=== PATIENT | female | born 1970 | race Caucasian/White ===

== ENCOUNTER 2019-03-22 11:56 | Inpatient (IN) | payer BC ==
[2019-03-22 12:20] LABS: Absolute Lymphocytes (CBC) 2.5 K/uL (0.7-4.9); Eosinophils % 1.5 % (0-4.4); Hematocrit 41.1 % (36.0-45.0); Lymphocytes % 40.9 % (15.3-44.8); Monocytes % 4.4 % (3.3-12.3); RBC Red Blood Cell Count 4.07 M/uL (3.86-4.86)
[2019-03-22 12:27] LABS: Protime INR 0.98
[2019-03-22] MEDS ORDERED: NA CHLORIDE 0.9% 500 ML ONE (12:30)
[2019-03-22] MEDS ORDERED: THIAMINE 200 MG/2 ML INJ ONE (12:30)
[2019-03-22 12:42] LABS: ALT/SGPT 60 U/L (12-78); AST/SGOT 122 U/L (15-37); Albumin 3.2 g/dL (3.4-5.0); Alkaline Phosphatase 198 U/L (45-117); BUN Blood Urea Nitrogen 4 mg/dL (7-18); Bicarbonate 23 mmol/L (21-32); Bilirubin Direct 0.2 mg/dL (0-0.2); Bilirubin Total 0.4 mg/dL (0.2-1.0); Glucose Level 103 mg/dL (74-106); Magnesium 1.9 mg/dL (1.8-2.4); NT PRO-BNP 153 pg/mL (<125); Potassium 3.4 mmol/L (3.5-5.1); Protein, Total 7.6 g/dL (6.4-8.2); Sodium Level 144 mmol/L (136-145); Troponin (Emerg Dept Use Only) < 0.02 ng/mL (0.0-0.045)
--- NOTE | 2019-03-22 12:46 | RAD REPORT ---
EXAM DESCRIPTION: CT - Head Brain Wo Cont - 03/22/2019 12:38 pm CLINICAL HISTORY: Confused;Mental status change Drowsiness, headache COMPARISON: No comparisons TECHNIQUE: All CT scans are performed using dose optimization technique as appropriate and may inclu de automated exposure control or mA/KV adjustment according to patient size. FINDINGS: No intracranial hemorrhage, hydrocephalus or extra-axial fluid collection.Generalized brai n atrophy.No areas of brain edema or evidence of midline shift. The paranasal sinuses and mastoids are clear. The calvarium is intact. IMPRESSION: No acute intracranial abnormality.
[2019-03-22] MEDS ORDERED: NA CHLORIDE 0.9% 1,000 ML with FOLIC ACID 1 MG, THIAMINE HCL 100 MG, MULTIVITAMINS INJ ... IV SCH ×4 (13:00)
--- NOTE | 2019-03-22 13:04 | ER ---
Nurse's Notes [facility] Name: Megha Yang Age: 49 yrs Sex: Female : 1970 Arrival Date: 03/22/2019 Time: 12:03 Bed 4 Private MD: Diagnosis: Alcohol abuse;Alcohol abuse with intoxication;Abuse of non-psychoactive substances-diazapam and seroquel;Altered mental status, unspecified;Hypokalemia;Major depressive disorder, recurrent;Suicide attempt;Suicidal ideations Presentation: 03/22 12:07 Presenting complaint: EMS states: called EMS as patient was found to be ss minimally responsive in bed today. Last seen normal at 0630 this AM before left for work. Patient reportedly mentioned to family that the world would be better off without her in it. Pt is drowsy, but will open eyes and attempt to speak, but is unable to verbally communicate. Patient had a Seroquel 50 mg prescription that was filled 5 days ago #30, which was found empty. Pt also has a bottle of diazepam #30 which contains 10 tablets, and was prescribed in February of this year. Transition of care: patient was not received from another setting of care. Onset of symptoms was March 22, 2019. Risk Assessment: Do you want to hurt yourself or someone else? Unable to obtain. Initial Sepsis Screen: Does the patient meet any 2 criteria? HR > 90 bpm. Does the patient have a suspected source of infection? No. Patient's initial sepsis screen is negative. Care prior to arrival: Medication(s) given: Normal saline infusion, 250 mL NS administered to R AC IV initiated. 20 GA, in the right antecubital area, Glucose check: 107. 12:07 Method Of Arrival: EMS: [facility] 12:07 Acuity: JANETTE 1 ss HOSPICE CONSULTANT: 13:03 LMP N/A - Hysterectomy ss Historical: - Allergies: 12:15 No Known Allergies; aa5 - Home Meds: 12:15 Seroquel 50 mg Oral tab take 1/2 tab at bedtime [Active]; diazepam 10 mg oral tab daily aa5 [Active]; gabapentin 300 mg oral cap 3 times per day [Active]; - PMHx: 12:15 Depression; ss - PSHx: 12:15 Hysterectomy; cervical cancer; Appendectomy; Cholecystectomy; ss - Immunization history:: Adult Immunizations unknown. - Social history:: Smoking status: unknown. - Ebola Screening: : Unable to complete screening because. - Family history:: not pertinent. Screenin:05 Abuse screen: Unable to complete. Nutritional screening: unable to complete. aa5 Tuberculosis screening: unable to complete. Fall Risk IV access (20 points). Mental Status- Overestimates/Forgets Limitations (15 pts.). Total Bedolla Fall Scale indicates Low Risk Score (25-44 pts). Fall prevention measures have been instituted. Side Rails Up X 2 Placed close to Nursing Station. Assessment: 12:05 Pain: Unable to use pain scale. Patient is unresponsive. Neuro: Level of Consciousness aa5 is drowsy, pt opens eyes to verbal stimuli, incomprehensible speech noted, pt is able to dixonac operator, equal wool fleece sorter bilaterally. Pupils are equal, round, 2mm in size and reactive to light. . Cardiovascular: Heart tones S1 S2 present Rhythm is regular. Respiratory: Airway is patent Respiratory effort is even, unlabored, Respiratory pattern is regular, symmetrical. GI: Abdomen is round Bowel sounds present X 4 quads. Abd is soft X 4 quads. : No signs and/or symptoms were reported regarding the genitourinary system. EENT: No signs and/or symptoms were reported regarding the EENT system. Derm: Skin is pink, warm \\T\\ dry. Bruising that is dark purple, on chest. Musculoskeletal: Range of motion: intact in all extremities. 12:20 Reassessment: Pt's at bedside, pt's states "she drinks whiskey every aa5 day". 12:29 Reassessment: Spoke to poison control, case # [id number]. Recommendations are as follow: aa5 basic/toxic labs, EKG, cardiac monitoring, IV fluids, seizure precautions, monitor for cholinergic effects (dry mouth, tachycardia, agitation, and urinary retention), monitor for prolonged QT, monitor for CHEESE SPECIALIST depression, administer benzodiazepines for agitation as needed. Dr. Haley notified of recommendations. . 12:55 Reassessment: To bedside to insert Briggs. Speaking to patient about need for Briggs aa5 placement, pt awakened and stated "I refused" with clear speech noted, pt is alert and oriented x person, place, and time. Pt now drowsy and slurred incomprehensible speech noted, pt does not answer questions when asked which medications she ingested, pt also does not answer question about being suicidal/homicidal. MD was notified of findings and notified of pt's refusal for Briggs placement. Pt assisted with bedpan and urine specimen collection, pt voided 50 cc of clear yellow urine. . 13:20 Reassessment: Pt assisted with bedpan. aa5 13:30 Reassessment: Pt resting in bed with eyes closed, respirations even and unlabored, skin aa5 is pink/warm/dry. Pt awakens to verbal stimuli, incomprehensible speech noted at this time, pt appears drowsy. Pt's remains at bedside. . 14:00 Reassessment: Pt resting in bed with eyes closed, respirations even and unlabored, skin aa5 is pink/warm/dry. Pt awakens to verbal stimuli, speech is slurred. Pt appears drowsy. Pt not answering questions regarding overdose. . 14:10 Reassessment: awaiting admission orders to be placed prior to receiving room ss assignment. Dr. Syed at bedside to discuss plan of care and perform assessment. 15:00 Reassessment: Pt resting in bed with eyes closed, pt easy to arouse to verbal stimuli. aa5 Pt is A\\T\\O x 3, equal unlabored, respirations, skin is pink/warm/dry. Awaiting room assignment. . 15:00 Neuro: Lean Facilitator are equal bilaterally Moves all extremities. Speech is normal, Facial aa5 symmetry appears normal, Pupils are PERRLA. Vital Signs: 12:05 BP 121 / 85; Pulse 120; Resp 12; Pulse Ox 100% on 2 lpm NC; aa5 12:05 Temp 97.8(TE); aa5 12:25 BP 107 / 72; Pulse 115; Resp 18 S; Pulse Ox 100% on 2 lpm NC; aa5 13:00 BP 103 / 71; Pulse 93; Resp 16 S; Pulse Ox 99% on 2 lpm NC; aa5 13:43 BP 104 / 73; Pulse 88; Resp 16; Pulse Ox 100% on 2 lpm NC; ms 14:20 BP 112 / 80; Pulse 92; Resp 18 S; Temp 97.6(TE); Pulse Ox 100% on 2 lpm NC; aa5 15:02 BP 91 / 67; Pulse 88; Resp 16; Pulse Ox 100% on 2 lpm NC; ms 15:20 BP 92 / 68; Pulse 88; Resp 16 S; Temp 98.0(TE); Pulse Ox 100% on 2 lpm NC; aa5 15:40 BP 90 / 69; Pulse 88; Resp 16 S; Pulse Ox 99% on 2 lpm NC; aa5 ED Course: 12:03 Patient arrived in ED. ss 12:03 Marino Haley MD is Attending Physician. yunior 12:05 Arm band placed on right wrist. aa 12:05 Patient has correct armband on for positive identification. Placed in gown. Bed in low aa5 position. Side rails up X2. 12:07 Caty Melara, TARIK is Primary Nurse. aa5 12:14 Triage completed. 12:15 Safety checks: Items removed: yes. Door open/sign placed on door: yes. Family/friend ms present: yes. Family/friends encouraged to stay with patient. Sitter present: Yes. 12:30 Safety checks: Items removed: yes. Door open/sign placed on door: yes. Family/friend ms present: yes. Family/friends encouraged to stay with patient. Sitter present: Yes. 12:38 CT Head Brain wo Cont In Process Unspecified. EDMS 12:45 Safety checks: Items removed: yes. Door open/sign placed on door: yes. Family/friend ms present: yes. Family/friends encouraged to stay with patient. Sitter present: Yes. 12:58 Agustín Syed MD is Hospitalizing Provider. [facility] 12:59 Hospitalizing Provider role handed off by Agustín Syed MD [facility] 12:59 Ramiro Syed MD is Hospitalizing Provider. [facility] 13:00 Safety checks: Items removed: yes. Door open/sign placed on door: yes. Family/friend ms present: yes. Family/friends encouraged to stay with patient. Sitter present: Yes. 13:15 Safety checks: Items removed: yes. Door open/sign placed on door: yes. Family/friend ms present: yes. Family/friends encouraged to stay with patient. Sitter present: Yes. 13:29 Maintain EMS IV. Dressing intact. Good blood return noted. Site clean \\T\\ dry. ms 13:30 Safety checks: Items removed: yes. Door open/sign placed on door: yes. Family/friend ms present: yes. Family/friends encouraged to stay with patient. Sitter present: Yes. Assisted with bedpan. 13:45 Safety checks: Items removed: yes. Door open/sign placed on door: yes. Family/friend ms present: yes. Family/friends encouraged to stay with patient. Sitter present: Yes. 14:00 Safety checks: Items removed: yes. Door open/sign placed on door: yes. Family/friend ms present: yes. Family/friends encouraged to stay with patient. Sitter present: Yes. 14:09 Hospitalist at bedside with Pt. ms 14:15 Safety checks: Items removed: yes. Door open/sign placed on door: yes. Family/friend ms present: yes. Family/friends encouraged to stay with patient. Sitter present: Yes. 14:30 Safety checks: Items removed: yes. Door open/sign placed on door: yes. Family/friend ms present: yes. Family/friends encouraged to stay with patient. Sitter present: Yes. 14:32 X-ray completed. Portable x-ray completed in exam room. Patient tolerated procedure jb2 well. 14:45 Safety checks: Items removed: yes. Door open/sign placed on door: yes. Family/friend ms present: yes. Family/friends encouraged to stay with patient. Sitter present: Yes. 15:00 Safety checks: Items removed: yes. Door open/sign placed on door: yes. Family/friend ms present: yes. Family/friends encouraged to stay with patient. Sitter present: Yes. 15:15 Safety checks: Items removed: yes. Door open/sign placed on door: yes. Family/friend ms present: yes. Family/friends encouraged to stay with patient. Sitter present:. 15:30 Safety Checks: Personal items have been removed. The door is open or patient has been aa5 placed in a hallway bed/chair. A family member and/or friend is present and encouraged to stay. Sitter present at this time. 15:45 No provider procedures requiring assistance completed. Patient admitted, IV remains in aa5 place. Administered Medications: 12:08 Drug: NS 0.9% 1000 ml Route: IV; Rate: 1 bolus; Site: right antecubital; aa5 13:15 Follow up: IV Status: Completed infusion; IV Intake: 1000ml aa5 12:18 Drug: Thiamine 100 mg Route: IV; Rate: bolus; Site: right antecubital; aa5 12:49 CANCELLED (Duplicate Order): Banana Bag - (NS 0.9% 1000 ml, foLIC Acid 1 mg, Thiamine yunior 100 mg, Multivitamin 1 amp) IV at calculated rate once 13:15 Drug: Pepcid 20 mg Route: IVP; Site: right antecubital; aa5 13:20 Follow up: Response: No adverse reaction aa5 13:30 Drug: Potassium Chloride 20 mEq Route: IV; Rate: per protocol; Site: right antecubital; aa5 15:40 Follow up: Response: No adverse reaction; IV Status: Completed infusion aa5 13:30 Drug: Banana Bag - (NS 0.9% 1000 ml, foLIC Acid 1 mg, Thiamine 100 mg, Multivitamin 1 aa5 amp) Route: IV; Rate: 125 ml/hr; Site: right antecubital; 15:30 Follow up: IV Status: Infusion continued upon admission aa5 Point of Care Testing: Blood Glucose: 12:15 Blood Glucose: 93 mg/dL; aa5 Ranges: Intake: 13:15 IV: 1000ml; Total: 1000ml. aa5 Output: 12:55 Urine: 50ml (Voided); Total: 50ml. aa5 13:20 Urine: 275ml (Voided); Total: 325ml. aa5 14:01 Urine: 250ml (Voided); Total: 575ml. aa5 Outcome: 13:02 Decision to Hospitalize by Provider. yunior 15:45 Admitted to ICU accompanied by nurse, accompanied by tech, via stretcher, with oxygen, aa5 Report called to TARIK Su 15:45 Condition: stable 15:45 Discharge instructions given to Pt's Instructed on the need for admit, Demonstrated understanding of instructions. 15:55 Patient left the ED. la1 Signatures: Dispatcher [employer] EDMS Marino Haley MD MD cha Buechter, Jesse jb2 Solis, Maria ms Calderon, Audri, RN RN aa5 Enma John RN RN ss Rodri Nolasco RN RN la1 Corrections: (The following items were deleted from the chart) 12:17 12:15 BP 121 / 85; Pulse 120bpm; Resp 15bpm; Pulse Ox 100% RA; ss ss 12:19 12:15 BP 121 / 85; Pulse 120bpm; Resp 12bpm; Pulse Ox 100% RA; aa5 12:20 12:15 BP 121 / 85; Pulse 120bpm; Resp 12bpm; Pulse Ox 100% 2 lpm Nasal Cannula; [facility] 12:20 12:15 Temp 97.8F Temporal; aa5 5 12:20 12:15 Arm band placed on right wrist. [facility] 12:33 12:07 Risk Assessment: Do you want to hurt yourself or someone else? Patient reports no [facility] desire to harm self or others. 12:34 12:07 Presenting complaint: EMS states: called EMS as patient was found to be ss minimally responsive in bed today. Last seen normal at 0630 this AM before left for work. Patient reportedly mentioned to family that the world would be better off without her in it. Pt is drowsy, but will open eyes and attempt to speak, but is unable to verbally communicate. Patient had a Seroquel 5 mg prescription that was filled 5 days ago #30, which was found empty. Pt also has a bottle of diazepam #30 which contains 10 tablets, and was prescribed in February of this year. 14:24 12:15 Allergies: Unable to obtain; [facility] 14:24 12:15 Home Meds: Seroquel 50 mg Oral tab; [facility] 14:24 12:15 Home Meds: Diazepam Oral; [facility] 14:24 12:15 Home Meds: gabapentin oral oral; [facility]
--- NOTE | 2019-03-22 13:04 | EDPHYS ---
Physician Documentation [facility] Name: Megha Yang Age: 49 yrs Sex: Female : 1970 Arrival Date: 03/22/2019 Time: 12:03 Bed 4 Private MD: ED Physician Marino Haley HPI: 03/22 12:51 This 49 yrs old Female presents to ER via EMS with complaints of Overdose. yunior 12:51 The patient presents to the emergency department after a known overdose, that was yunior intentional. Context: Method: the patient has a confirmed or suspected ingestion, Time: 2 day(s) ago. Associated signs and symptoms: Pertinent positives: decreased level of consciousness, depression. Severity of symptoms: At their worst the symptoms were mild in the emergency department the symptoms are unchanged. The patient has not experienced similar symptoms in the past. 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 - Social history:: Smoking status: unknown. - Ebola Screening: : Unable to complete screening because. - Family history:: not pertinent. ROS: 12:51 Constitutional: Negative for fever, chills, and weight loss, Eyes: Negative for injury, yunior pain, redness, and discharge, ENT: Negative for injury, pain, and discharge, Neck: Negative for injury, pain, and swelling, Cardiovascular: Negative for chest pain, palpitations, and edema, Respiratory: Negative for shortness of breath, cough, wheezing, and pleuritic chest pain, Abdomen/GI: Negative for abdominal pain, nausea, vomiting, diarrhea, and constipation, Back: Negative for injury and pain, : Negative for injury, bleeding, discharge, and swelling, MS/Extremity: Negative for injury and deformity, Skin: Negative for injury, rash, and discoloration, Psych: Negative for depression, anxiety, suicide ideation, homicidal ideation, and hallucinations, Allergy/Immunology: Negative for hives, rash, and allergies, Endocrine: Negative for neck swelling, polydipsia, polyuria, polyphagia, and marked weight changes, Hematologic/Lymphatic: Negative for swollen nodes, abnormal bleeding, and unusual bruising. 12:51 Neuro: Positive for altered mental status, near syncope, weakness. 12:51 Unable to obtain ROS due to altered mental status, patient being uncooperative. Exam: 12:51 Constitutional: This is a well developed, well nourished patient who is awake, alert, yunior and in no acute distress. Head/Face: Normocephalic, atraumatic. Eyes: Pupils equal round and reactive to light, extra-ocular motions intact. Lids and lashes normal. Conjunctiva and sclera are non-icteric and not injected. Cornea within normal limits. Periorbital areas with no swelling, redness, or edema. ENT: Nares patent. No nasal discharge, no septal abnormalities noted. Tympanic membranes are normal and external auditory canals are clear. Oropharynx with no redness, swelling, or masses, exudates, or evidence of obstruction, uvula midline. Mucous membranes moist. Neck: Trachea midline, no thyromegaly or masses palpated, and no cervical lymphadenopathy. Supple, full range of motion without nuchal rigidity, or vertebral point tenderness. No Meningismus. Chest/axilla: Normal chest wall appearance and motion. Nontender with no deformity. No lesions are appreciated. Respiratory: Lungs have equal breath sounds bilaterally, clear to auscultation and percussion. No rales, rhonchi or wheezes noted. No increased work of breathing, no retractions or nasal flaring. Abdomen/GI: Soft, non-tender, with normal bowel sounds. No distension or tympany. No guarding or rebound. No evidence of tenderness throughout. Back: No spinal tenderness. No costovertebral tenderness. Full range of motion. Female : Normal external genitalia. MS/ Extremity: Pulses equal, no cyanosis. Neurovascular intact. Full, normal range of motion. Psych: Awake, alert, with orientation to person, place and time. Behavior, mood, and affect are within normal limits. 12:51 Cardiovascular: Rate: tachycardic, Rhythm: regular, Pulses: Pulses are 4+ in bilateral radial, brachial, femoral, popliteal, posterior tibial and and dorsalis pedis arteries.. Heart sounds: normal, normal S1and S2, no S3 or S4, no murmur, no rub, no gallop, Edema: is not appreciated, JVD: is not appreciated. Vital Signs: 12:05 BP 121 / 85; Pulse 120; Resp 12; Pulse Ox 100% on 2 lpm NC; aa5 12:05 Temp 97.8(TE); aa5 12:25 BP 107 / 72; Pulse 115; Resp 18 S; Pulse Ox 100% on 2 lpm NC; aa5 13:00 BP 103 / 71; Pulse 93; Resp 16 S; Pulse Ox 99% on 2 lpm NC; aa5 13:43 BP 104 / 73; Pulse 88; Resp 16; Pulse Ox 100% on 2 lpm NC; ms 14:20 BP 112 / 80; Pulse 92; Resp 18 S; Temp 97.6(TE); Pulse Ox 100% on 2 lpm NC; aa5 15:02 BP 91 / 67; Pulse 88; Resp 16; Pulse Ox 100% on 2 lpm NC; ms 15:20 BP 92 / 68; Pulse 88; Resp 16 S; Temp 98.0(TE); Pulse Ox 100% on 2 lpm NC; aa5 15:40 BP 90 / 69; Pulse 88; Resp 16 S; Pulse Ox 99% on 2 lpm NC; aa5 MDM: 12:03 Patient medically screened. [facility] 12:51 Data reviewed: vital signs, nurses notes, lab test result(s), EKG, radiologic studies, [facility] CT scan, plain films. 03/22 12:05 Order name: Basic Metabolic Panel [facility] 03/22 12:05 Order name: CBC with Diff [facility] 03/22 12:05 Order name: LFT's [facility] 03/22 12:05 Order name: Magnesium [facility] 03/22 12:05 Order name: NT PRO-BNP; Complete Time: 12:[address] [facility] 03/22 12:05 Order name: PT-INR; Complete Time: 12:[address] [facility] 03/22 12:05 Order name: Troponin (emerg Dept Use Only); Complete Time: 12:[address] [facility] 03/22 12:05 Order name: Acetaminophen; Complete Time: 12:[address] [facility] 03/22 12:05 Order name: ETOH Level; Complete Time: 12:[address] [facility] 03/22 12:05 Order name: Ptt, Activated; Complete Time: 12:[address] [facility] 03/22 12:05 Order name: Salicylate; Complete Time: 13:[address] [facility] 03/22 12:05 Order name: Urine Drug Screen; Complete Time: 13:[address] [facility] 03/22 12:08 Order name: Basic Metabolic Panel; Complete Time: 12:48 [facility] 03/22 12:08 Order name: CBC with Automated Diff; Complete Time: 12:48 [facility] 03/22 12:05 Order name: XRAY Chest (1 view) [facility] 03/22 12:05 Order name: EKG; Complete Time: 12:[address] [facility] 03/22 12:05 Order name: Cardiac monitoring; Complete Time: 12:[address] [facility] 03/22 12:08 Order name: Liver (Hepatic) Function; Complete Time: 12:48 [facility] 03/22 12:08 Order name: Magnesium; Complete Time: 12:48 [facility] 03/22 12:19 Order name: AMMONIA; Complete Time: 13:[address] [facility] 03/22 12:19 Order name: CT Head Brain wo Cont; Complete Time: 12:[address] [facility] 03/22 12:48 Order name: Lipase; Complete Time: 13:[address] [facility] 03/22 13:05 Order name: Urine Dipstick--Ancillary (enter results); Complete Time: 13:32 03/22 15:01 Order name: RAD [facility] 03/22 12:05 Order name: EKG - Nurse/Tech; Complete Time: 12:[address] [facility] 03/22 12:05 Order name: IV Saline Lock; Complete Time: 12:[address] [facility] 03/22 12:05 Order name: Labs collected and sent; Complete Time: 12:[address] [facility] 03/22 12:05 Order name: O2 Per Protocol; Complete Time: 12:[address] [facility] 03/22 12:05 Order name: O2 Sat Monitoring; Complete Time: 12:[address] [facility] 03/22 12:05 Order name: Urine Dipstick-Ancillary (obtain specimen); Complete Time: 12:[address] [facility] 03/22 12:05 Order name: Blood Glucose Level; Complete Time: 12:[address] [facility] 03/22 12:05 Order name: Oxygen; Complete Time: 12:[address] [facility] Administered Medications: 12:08 Drug: NS 0.9% 1000 ml Route: IV; Rate: 1 bolus; Site: right antecubital; aa5 13:15 Follow up: IV Status: Completed infusion; IV Intake: 1000ml aa5 12:18 Drug: Thiamine 100 mg Route: IV; Rate: bolus; Site: right antecubital; aa5 12:49 CANCELLED (Duplicate Order): Banana Bag - (NS 0.9% 1000 ml, foLIC Acid 1 mg, Thiamine yunior 100 mg, Multivitamin 1 amp) IV at calculated rate once 13:15 Drug: Pepcid 20 mg Route: IVP; Site: right antecubital; aa5 13:20 Follow up: Response: No adverse reaction aa5 13:30 Drug: Potassium Chloride 20 mEq Route: IV; Rate: per protocol; Site: right antecubital; aa5 15:40 Follow up: Response: No adverse reaction; IV Status: Completed infusion aa5 13:30 Drug: Banana Bag - (NS 0.9% 1000 ml, foLIC Acid 1 mg, Thiamine 100 mg, Multivitamin 1 aa5 amp) Route: IV; Rate: 125 ml/hr; Site: right antecubital; 15:30 Follow up: IV Status: Infusion continued upon admission aa5 Point of Care Testing: Blood Glucose: 12:15 Blood Glucose: 93 mg/dL; aa5 Ranges: Critical Glucose Levels:Adult <50 mg/dl or >400 mg/dl <40 mg/dl or >180 mg/dl Disposition: 03/22/19 13:02 Hospitalization ordered by Ramiro Syed for Inpatient Admission. 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 - Bed requested for Intensive Care Unit. - Status is Inpatient Admission. la1 - Condition is Fair. - Problem is new. - Symptoms have improved. UTI on Admission? 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 yunior 12:58 12:[address] [place] [address] [facility] la1 13:03 13:02 Hospitalization Ordered by Ramiro Syed MD for Inpatient Admission. 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 Bed requested for Intensive Care Unit. Status is Inpatient Admission. Condition is Fair. Problem is new. Symptoms have improved. UTI on Admission? No. yunior 13:07 13:03 03/22/2019 13:02 Hospitalization Ordered by Ramiro Syed MD for Inpatient yunior Admission. 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 Bed requested for Intensive Care Unit. Status is Inpatient Admission. Condition is Fair. Problem is new. Symptoms have improved. UTI on Admission? No. yunior 14:24 12:15 Allergies: Unable to obtain; aa5 14:24 12:15 Home Meds: Seroquel 50 mg Oral tab; aa5 14:24 12:15 Home Meds: Diazepam Oral; aa5 14:24 12:15 Home Meds: gabapentin oral oral; aa5 15:08 13:07 03/22/2019 13:02 Hospitalization Ordered by Ramiro Syed MD for Inpatient bd Admission. 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 Bed requested for Intensive Care Unit. Status is Inpatient Admission. Condition is Fair. Problem is new. Symptoms have improved. UTI on Admission? No. [facility] 15:55 15:08 03/22/2019 13:02 Hospitalization Ordered by Ramiro Syed MD for Inpatient la1 Admission. 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 Bed requested for Intensive Care Unit. Status is Inpatient Admission. Condition is Fair. Problem is new. Symptoms have improved. UTI on Admission? No. bd
[2019-03-22 13:07] LABS: Barbiturates NEGATIVE (NEGATIVE); Benzodiazepines POSITIVE (NEGATIVE); Cocaine NEGATIVE (NEGATIVE); METHAMPHETAM NEGATIVE (NEGATIVE); Methadone NEGATIVE (NEGATIVE); Opiates NEGATIVE (NEGATIVE); Phencyclidine NEGATIVE (NEGATIVE); THC Cannibis NEGATIVE (NEGATIVE)
[2019-03-22 13:14] LABS: Urine Blood NEGATIVE (NEG); Urine Glucose NEGATIVE (NEG); Urine Protein NEGATIVE (NEG); Urine Specific Gravity <1.005 (1.005-1.030); Urine pH 5.5 (5.0-7.0)
[2019-03-22] MEDS ORDERED: FAMOTIDINE 20 MG/2 ML VIAL IV ONE (13:52)
[2019-03-22] MEDS ORDERED: KCL 20 MEQ/100 mL IVPB 20 MEQ/100 ML BAG IV ONE (13:52)
--- NOTE | 2019-03-22 14:58 | RAD REPORT ---
EXAM DESCRIPTION: RAD - Chest Single View - 03/22/2019 2:36 pm CLINICAL HISTORY: Cough, shortness of breath, possible overdose COMPARISON: June 2014 TECHNIQUE: AP portable chest image was obtained 1434 hours . FINDINGS: Shallow inspiration accentuates lung markings. No pulmonary edema or acute lung parenchyma l process. Heart and vasculature are normal. No measurable pleural effusion and no pneumothorax. No a cute bony abnormality seen. No acute aortic findings suspected. IMPRESSION: No acute cardiopulmonary process.
[2019-03-22] MEDS ORDERED: LORazepam 2 MG/ML VIAL IV PRN (15:52)
[2019-03-22] MEDS ORDERED: FLUMAZENIL 0.1 MG/ML (5 mL VIAL) IV PRN (15:52)
--- NOTE | 2019-03-22 16:29 | EKG ---
Test Date: 2019-03-22 Test Time: 12:09:16 Knowledge Manager: ELISA MEASUREMENT RESULTS: Intervals: Rate: 124 SC: 132 QRSD: 80 QT: 348 QTc: 499 [place]: P: 42 SC: 132 QRS: 77 T: 35 INTERPRETIVE STATEMENTS: Sinus tachycardia Low voltage QRS Nonspecific ST abnormality Abnormal ECG Compared to ECG 06/07/2014 15:02:18 Low QRS voltage now present ST (T wave) deviation now present Sinus rhythm no longer present Electronically Signed On 03-22-19 16:27:24 CDT by Matthieu James
--- NOTE | 2019-03-22 16:37 | P.HP ---
Certification for Inpatient Patient admitted to: Inpatient With expected LOS: >2 Midnights Practitioner: I am a practitioner with admitting privileges, knowledge of patient current condition, hospital course, and medical plan of care. Services: Services provided to patient in accordance with Admission requirements found in Title 42 Section 412.3 of the Code of Federal Regulations Patient History Date of Service: 03/22/19 Reason for admission: Alcohol intoxication, drug overdose History of Present Illness: This is a 49-year-old female with history depression admitted for overdose of ? Seroquel along with alcohol intoxication. Patient seen and examined at bedside , at bedside. Patient is sleepy, drowsy and unable to give me a full history. at bedside all unable to give me much history either. Patient stated that she did not want the in the room, I asked him to leave though she was altered and drowsy. History obtained from chart review and ER physician. It seems that patient took all of the Seroquel and diazepam that she had this morning. Per ER physician, this was intentional. Again, I was unable to get any history from the patient at this time. EMS was called, she was brought to the ER. In the ER, blood pressure was 121/85, heart rate of 120, respirations of 12, pulse ox 100% on 2 L nasal cannula and afebrile. She received thiamine, IV fluids in the ER. Her labs were remarkable for macrocytosis, AST elevated at 122, alk-phos elevated at 198. Her urine drug screen positive for benzodiazepine and alcohol level of 279. At the time of my exam, she was hemodynamically stable, sleepy and drowsy and unable to give me history. She was admitted for alcohol intoxication and possible intentional drug overdose. It seems that she has a history of prior overdose as well. She will need ICU for one on one monitoring. Allergies No Known Allergies Allergy (Unverified 03/22/19 15:47) Home medications list reviewed: Yes - Past Medical/Surgical History -: Depression Review of Systems is unable to be obtained Physical Examination - Vital Signs Temperature: 97.8 F Blood Pressure: 91/67 Pulse: 88 Respirations: 16 - Physical Exam General: In no apparent distress, Confused, Other (Drowsy, though arousable. Unable to really speak in giving history. Unable to follow commands or answer questions appropriately.) HEENT: Atraumatic, PERRLA, Mucous membr. moist/pink, EOMI, Sclerae nonicteric Neck: Supple, 2+ carotid pulse no bruit, No LAD, Without JVD or thyroid abnormality Respiratory: Clear to auscultation bilaterally, Normal air movement Cardiovascular: Regular rate/rhythm, Normal S1 S2 Gastrointestinal: Normal bowel sounds, No tenderness Neurological: Abnormal speech - Studies Laboratory Data (last 24 hrs) 03/22/19 12:10: Lipase 313 03/22/19 12:10: PT 11.6, INR 0.98, APTT 33.9 03/22/19 12:10: WBC 6.2, Hgb 14.3, Hct 41.1, Plt Count 188 03/22/19 12:10: Sodium 144, Potassium 3.4 L, BUN 4 L, Creatinine 0.47 L, Glucose 103, Magnesium 1.9, Total Bilirubin 0.4, AST 122 H, ALT 60, Alkaline Phosphatase 198 H Assessment and Plan - Problems (Diagnosis) (1) Alcohol intoxication delirium Current Visit: Yes Status: Acute Plan: Patient with chronic alcohol usage, acute intoxication at this time Blood alcohol of 279 - frequent neuro checks - CIWA protocol - IV Ativan as needed - Librium, once tolerating p.o. and more awake. - fall precautions - social work for resources/discharge planning (2) Drug overdose Current Visit: Yes Status: Acute Plan: Per , patient with prior overdose episodes as well. - unsure if intentional or accidental. Will need to determine once patient more awake. - until then, admit to ICU for 1 on 1 monitoring, suicide precaution - if episode was intentional, will need MAT team evaluation for possible further psychiatric evaluation. Qualifiers: Encounter type: initial encounter Injury intent: undetermined intent Qualified Code(s): T50.904A - Poisoning by unspecified drugs, medicaments and biological substances, undetermined, initial encounter (3) Depression Current Visit: Yes Status: Acute Plan: Will hold home medications due to overdose at this time. Patient may need further psychiatric evaluation. He will have to be decided whether it will have to be inpatient versus outpatient. Qualifiers: Depression Type: major depressive disorder Major depression recurrence: recurrent Active/Remission status: remission status unspecified Qualified Code(s): F33.9 - Major depressive disorder, recurrent, unspecified (4) Macrocytosis without anemia Current Visit: Yes Status: Acute Plan: Likely secondary to chronic alcohol use. (5) Elevated LFTs Current Visit: Yes Status: Acute Plan: Likely secondary to chronic alcohol use. Will continue to trend and monitor. (6) Alcohol abuse Current Visit: Yes Status: Chronic Plan: Patient will need to be educated on alcohol cessation. Social work consulted for resources/discharge planning - Plan DVT prophylaxis: Lovenox GI prophylaxis: None Diet: NPO Disposition: Admit to the ICU, 1 on 1 monitoring, suicide precautions and fall precautions. - Advance Directives Does patient have a Living Will: No Does patient have a Durable POA for Healthcare: No Time Spent Managing Pts Care (In Minutes): 55
[2019-03-22] MEDS: ENOXAPARIN 40 MG/0.4 ML SQ SCH (17:00)
[2019-03-23 05:00] LABS: Absolute Lymphocytes (CBC) 1.9 K/uL (0.7-4.9); Basophils % 0.9 % (0-1.3); Eosinophils % 2.7 % (0-4.4); Lymphocytes % 31.8 % (15.3-44.8); MPV 9.1 fL (7.6-11.3); Monocytes % 6.5 % (3.3-12.3); RBC Red Blood Cell Count 3.76 M/uL (3.86-4.86)
[2019-03-23 05:14] LABS: ALT/SGPT 47 U/L (12-78); AST/SGOT 86 U/L (15-37); Albumin 2.9 g/dL (3.4-5.0); Alkaline Phosphatase 164 U/L (45-117); BUN Blood Urea Nitrogen 4 mg/dL (7-18); Bicarbonate 28 mmol/L (21-32); Glucose Level 86 mg/dL (74-106); Potassium 3.9 mmol/L (3.5-5.1); Protein, Total 6.7 g/dL (6.4-8.2); Sodium Level 142 mmol/L (136-145)
[2019-03-23] MEDS: ONDANSETRON 4 MG/2 ML VIAL IV PRN ×2 (08:30→17:01)
[2019-03-23] MEDS ORDERED: FOLIC ACID 1 MG TABLET PO SCH (09:00)
[2019-03-23] MEDS ORDERED: NICOTINE 21 MG/PAT TD SCH (09:00)
[2019-03-23] MEDS ORDERED: THIAMINE HCL 100 MG TABLET PO SCH (09:00)
[2019-03-23] MEDS ORDERED: FOLIC ACID 1 MG, MULTIVITAMINS INJ 10 ML, THIAMINE HCL 100 MG in NA CHLORIDE 0.9% 1,000 ML IV SCH (09:00)
[2019-03-23] MEDS ORDERED: MULTIVITAMIN TAB PO SCH (09:00)
[2019-03-23] MEDS: ENOXAPARIN 40 MG/0.4 ML SQ SCH (09:10)
--- NOTE | 2019-03-23 15:47 | P.PN ---
Subjective Date of Service: 03/23/19 Chief Complaint: Alcohol intoxication, drug overdose Patient seen and examined at bedside. Son at bedside. Chart reviewed and case discussed with nursing staff. Patient much more awake and alert this am. She stated that she took a lot of her seroquel pills because she was feeling really sad and her depression seems to be flaring up. She states that she was in the middle of medication changes with her psych and it seems that its not working any more. She has a history of suicidal ideations but no attempts in the past. She stated that she just wanted it to end. Tolerating PO at this time; in no acute distress. No acute event noted. She is symptom free at this time. Review of Systems 10-point ROS is otherwise unremarkable Physical Examination - Vital Signs Temperature: 96.4 F Blood Pressure: 128/87 Pulse: 66 Respirations: 22 Pulse Ox (%): 100 - Physical Exam General: Alert, In no apparent distress, Oriented x3 HEENT: Atraumatic, PERRLA, EOMI Neck: Supple, JVD not distended Respiratory: Clear to auscultation bilaterally, Normal air movement Cardiovascular: Regular rate/rhythm, Normal S1 S2 Gastrointestinal: Normal bowel sounds, No tenderness Musculoskeletal: No tenderness Integumentary: No rashes Neurological: Normal speech, Normal tone, Normal affect Lymphatics: No axilla or inguinal lymphadenopathy Assessment And Plan - Current Problems (Diagnosis) (1) Alcohol intoxication delirium Current Visit: Yes Status: Acute Plan: Patient with chronic alcohol usage, acute intoxication at this time - Improved mentation Blood alcohol of 279 - frequent neuro checks - [facility] protocol - IV Ativan as needed - Librium PO - fall precautions - social work for resources/discharge planning (2) Drug overdose Current Visit: Yes Status: Acute Plan: Per , patient with prior overdose episodes as well. improved mentation. - intentional attempt. Patient states that she has had prior suicidal thoughts but no prior suicide attempts. She will need [facility] evaluation for possible inpatient psych admission. - In ICU for 1 on monitoring, suicide precaution Qualifiers: Encounter type: initial encounter Injury intent: undetermined intent Qualified Code(s): T50.904A - Poisoning by unspecified drugs, medicaments and biological substances, undetermined, initial encounter (3) Depression Current Visit: Yes Status: Acute Plan: Will hold home medications due to overdose at this time. She will need [facility] evaluation and will need continued follow up with psych Qualifiers: Depression Type: major depressive disorder Major depression recurrence: recurrent Active/Remission status: remission status unspecified Qualified Code(s): F33.9 - Major depressive disorder, recurrent, unspecified (4) Macrocytosis without anemia Current Visit: Yes Status: Acute Plan: Likely secondary to chronic alcohol use. (5) Elevated LFTs Current Visit: Yes Status: Acute Plan: Improving. - Likely secondary to chronic alcohol use. Will continue to trend and monitor. (6) Alcohol abuse Current Visit: Yes Status: Chronic Plan: Patient will need to be educated on alcohol cessation. Social work consulted for resources/discharge planning - Plan DVT prophylaxis: Lovenox GI prophylaxis: None Diet: Regular diet. Disposition: In ICU, 1 on monitoring, suicide precautions and fall precautions. Pending MR evaluation. Medically stable at this time.
[2019-03-24] MEDS ORDERED: LEVOTHYROXINE SOD 0.1 MG TAB PO SCH (06:00)
--- NOTE | 2019-03-24 11:41 | P.DS ---
Admission Date: 03/22/19 Discharge Date: 03/23/19 Disposition: TRANSFR TO OTHER-PSY/CD/REHAB Discharge Condition: GOOD Reason for Admission: Alcohol intoxication, drug overdose - Problems (1) Alcohol intoxication delirium Status: Acute (2) Drug overdose Status: Acute Qualifiers: Encounter type: initial encounter Injury intent: undetermined intent Qualified Code(s): T50.904A - Poisoning by unspecified drugs, medicaments and biological substances, undetermined, initial encounter (3) Depression Status: Acute Qualifiers: Depression Type: major depressive disorder Major depression recurrence: recurrent Active/Remission status: remission status unspecified Qualified Code(s): F33.9 - Major depressive disorder, recurrent, unspecified (4) Macrocytosis without anemia Status: Acute (5) Elevated LFTs Status: Acute (6) Alcohol abuse Status: Chronic Brief History of Present Illness: This is a 49-year-old female with history depression admitted for overdose of ? Seroquel along with alcohol intoxication. Patient seen and examined at bedside , at bedside. Patient is sleepy, drowsy and unable to give me a full history. at bedside all unable to give me much history either. Patient stated that she did not want the in the room, I asked him to leave though she was altered and drowsy. History obtained from chart review and ER physician. It seems that patient took all of the Seroquel and diazepam that she had this morning. Per ER physician, this was intentional. Again, I was unable to get any history from the patient at this time. EMS was called, she was brought to the ER. In the ER, blood pressure was 121/85, heart rate of 120, respirations of 12, pulse ox 100% on 2 L nasal cannula and afebrile. She received thiamine, IV fluids in the ER. Her labs were remarkable for macrocytosis, AST elevated at 122, alk-phos elevated at 198. Her urine drug screen positive for benzodiazepine and alcohol level of 279. At the time of my exam, she was hemodynamically stable, sleepy and drowsy and unable to give me history. She was admitted for alcohol intoxication and possible intentional drug overdose. It seems that she has a history of prior overdose as well. She will need ICU for one on one monitoring. Hospital Course: Patient was then monitored in ICU. She was provided with IV fluids and supportive care. She did well over the stay. [facility] evaluated patient. I did not feel patient was safe to go home due to prior suicidal ideation, for suicide attempts, means of future suicide attempts at home. There was also noted to be a different dynamic between and , therefore unsure of support at home. She was then transferred to inpatient psych facility does take a stable manner. Vital Signs/Physical Exam: Temp Pulse Resp BP Pulse Ox 97.0 F 62 22 H 141/88 H 100 03/23/19 16:00 03/23/19 17:00 03/23/19 17:00 03/23/19 17:00 03/23/19 17:00 General: Alert, In no apparent distress, Oriented x3 HEENT: Atraumatic, PERRLA, EOMI Neck: Supple, JVD not distended Respiratory: Clear to auscultation bilaterally, Normal air movement Cardiovascular: Regular rate/rhythm, Normal S1 S2 Gastrointestinal: Normal bowel sounds, No tenderness Musculoskeletal: No tenderness Integumentary: No rashes Neurological: Normal speech, Normal tone, Normal affect Lymphatics: No axilla or inguinal lymphadenopathy Laboratory Data at Discharge: WBC 5.9 K/uL (4.3-10.9) 03/23/19 04:38 Hgb 13.1 g/dL (12.0-15.0) 03/23/19 04:38 Hct 38.0 % (36.0-45.0) 03/23/19 04:38 Plt Count 161 K/uL (152-406) 03/23/19 04:38 PT 11.6 SECONDS (9.5-12.5) 03/22/19 12:10 INR 0.98 03/22/19 12:10 APTT 33.9 SECONDS (24.3-36.9) 03/22/19 12:10 Sodium 142 mmol/L (136-145) 03/23/19 04:38 Potassium 3.9 mmol/L (3.5-5.1) 03/23/19 04:38 BUN 4 mg/dL (7-18) L 03/23/19 04:38 Creatinine 0.52 mg/dL (0.55-1.3) L 03/23/19 04:38 Glucose 86 mg/dL (74-106) 03/23/19 04:38 Magnesium 1.9 mg/dL (1.8-2.4) 03/22/19 12:10 Total Bilirubin 1.0 mg/dL (0.2-1.0) 03/23/19 04:38 AST 86 U/L (15-37) H 03/23/19 04:38 ALT 47 U/L (12-78) 03/23/19 04:38 Alkaline Phosphatase 164 U/L (45-117) H 03/23/19 04:38 Lipase 313 U/L (73-393) 03/22/19 12:10 Home Medications: Diazepam [Valium] 10 mg PO DAILY 03/22/19 Gabapentin 600 mg PO BID 03/22/19 Levothyroxine [Synthroid] 100 mcg PO [id number] 03/22/19 Methylphenidate HCl [Methylphenidate ER] 10 mg PO BID 03/22/19 Quetiapine [Seroquel] 50 mg PO BEDTIME 03/22/19 Diet: Regular Activity: Ad laura Time spent managing pt's care (in minutes): 45
== END 2019-03-23 19:00 | DRG 918 ==
LOC: ER 11:56 → ERHOLD 14:18 → 3RD-ICU 15:34
PROVIDERS: ADMIT Family Medicine; ATTEND Family Medicine
DX: T43.592A Poisoning by other antipsychotics and neuroleptics, intentional self-harm, initial encounter (principal); F10.121 Alcohol abuse with intoxication delirium; F33.9 Major depressive disorder, recurrent, unspecified; Y92.019 Unspecified place in single-family (private) house as the place of occurrence of the external cause; Y90.8 Blood alcohol level of 240 mg/100 ml or more; D75.89 Other specified diseases of blood and blood-forming organs; R94.5 Abnormal results of liver function studies
CPT/HCPCS: 36415; 70450; 71045; 80048; 80053; 80076; 80307; 80320; 80329; 81003; 82140; 82962; 83690; 83735; 83880; 84484; 85025; 85610; 85730; 93005; 94760; 96361; 96365; 96366; 96368; 96375; 99291; J1650; J2405; J3411; J7030

== ENCOUNTER 2021-01-03 17:03 | Emergency (ER) | payer BC ==
--- NOTE | 2021-01-03 20:28 | RAD REPORT ---
EXAM DESCRIPTION: RAD - Chest Single View - 01/03/2021 8:08 pm CLINICAL HISTORY: right lower chest pain COMPARISON: Portable March 2019 TECHNIQUE: AP portable chest image was obtained 01/03/2021 8:08 pm . FINDINGS: No focal lung parenchymal process. Chronic interstitial pattern is similar to comparison. Heart and vasculature are normal. No measurable pleural effusion and no pneumothorax. No acute bony a bnormality seen. No acute aortic findings suspected. IMPRESSION: No acute cardiopulmonary process. No significant change from comparison study.
[2021-01-03] MEDS ORDERED: MORPHINE 2 MG/ML SYR ONE ×3 (20:47→23:05)
[2021-01-03 20:51] LABS: Absolute Lymphocytes (CBC) 2.7 K/uL (0.7-4.9); Basophils % 0.9 % (0-1.3); Hematocrit 37.2 % (36.0-45.0); Lymphocytes % 28.1 % (15.3-44.8); MPV 8.8 fL (7.6-11.3); RBC Red Blood Cell Count 3.84 M/uL (3.86-4.86)
[2021-01-03 20:59] LABS: Protime INR 1.02
[2021-01-03 21:24] LABS: ALT/SGPT 91 U/L (12-78); AST/SGOT 154 U/L (15-37); Albumin 4.1 g/dL (3.4-5.0); Alkaline Phosphatase 164 U/L (45-117); BUN Blood Urea Nitrogen 15 mg/dL (7-18); Bicarbonate 26 mmol/L (21-32); Bilirubin Direct 0.2 mg/dL (0-0.2); Bilirubin Total 0.7 mg/dL (0.2-1.0); Glucose Level 88 mg/dL (74-106); Magnesium 1.5 mg/dL (1.8-2.4); NT PRO-BNP 108 pg/mL (<125); Potassium 3.6 mmol/L (3.5-5.1); Sodium Level 139 mmol/L (136-145); Troponin (Emerg Dept Use Only) < 0.02 ng/mL (0.0-0.045)
[2021-01-03] MEDS ORDERED: KETOROLAC 30 MG/ML INJ ONE (23:05)
--- NOTE | 2021-01-03 23:05 | ER ---
Nurse's Notes [facility] Name: Megha Yang Age: 51 yrs Sex: Female : 1970 Arrival Date: 01/03/2021 Time: 17:07 Bed 20 Private MD: Diagnosis: Compression Fracture of T7 Presentation: 01/03 17:51 Chief complaint: Patient states: Stabbing pain on on the R mid back x 1 week. muscle ca1 spasms all the way around from the mid back to front, the pain is just breathtaking since last night. Denies cough. Coronavirus screen: Client denies travel out of the [place] in the last 14 days. difficulty breathing, Client presents with at least one sign or symptom that may indicate coronavirus-19. Standard/surgical mask placed on the client. Provider contacted for isolation considerations. Ebola Screen: Patient negative for fever greater than or equal to 101.5 degrees Fahrenheit, and additional compatible Ebola Virus Disease symptoms Patient denies exposure to infectious person. Patient denies travel to an Ebola-affected area in the 21 days before illness onset. No symptoms or risks identified at this time. Initial Sepsis Screen: Does the patient meet any 2 criteria? No. Patient's initial sepsis screen is negative. Does the patient have a suspected source of infection? No. Patient's initial sepsis screen is negative. Risk Assessment: Do you want to hurt yourself or someone else? Patient reports no desire to harm self or others. Onset of symptoms was January 03, 2021. 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 - Social history:: Smoking status: Patient reports the use of cigarette tobacco products, smokes one-half pack cigarettes per day. Screenin:30 Abuse screen: Denies threats or abuse. Denies injuries from another. Nutritional wh screening: No deficits noted. Tuberculosis screening: No symptoms or risk factors identified. Fall Risk None identified. Assessment: 19:30 General: Appears in no apparent distress. uncomfortable, Behavior is calm, cooperative, wh appropriate for age. 19:30 Pain: Complains of pain in back Pain currently is 9 out of 10 on a pain scale. 19:30 Neuro: Level of Consciousness is awake, alert, obeys commands, Oriented to person, wh place, time, situation, Appropriate for age. Cardiovascular: Capillary refill < 3 seconds. Respiratory: Airway is patent Respiratory effort is even, unlabored, Respiratory pattern is regular, symmetrical. GI: Abdomen is flat, non-distended. : No signs and/or symptoms were reported regarding the genitourinary system. EENT: No signs and/or symptoms were reported regarding the EENT system. Derm: Skin is intact, is healthy with good turgor, Skin is pink, warm \T\ dry. normal. Musculoskeletal: Circulation, motion, and sensation intact. 20:45 Reassessment: Patient appears in no apparent distress at this time. No changes from previously documented assessment. Patient and/or family updated on plan of care and expected duration. Pain level reassessed. Patient is alert, oriented x 3, equal unlabored respirations, skin warm/dry/pink. 22:00 Reassessment: Patient appears in no apparent distress at this time. Patient and/or family updated on plan of care and expected duration. Pain level reassessed. Patient is alert, oriented x 3, equal unlabored respirations, skin warm/dry/pink. 23:15 Reassessment: Patient appears in no apparent distress at this time. Patient and/or family updated on plan of care and expected duration. Pain level reassessed. Patient is alert, oriented x 3, equal unlabored respirations, skin warm/dry/pink. Patient states feeling better. Patient states symptoms have improved. Vital Signs: 17:51 BP 137 / 95; Pulse 82; Resp 16 S; Temp 97.6(TE); Pulse Ox 100% on R/A; Weight 77.11 kg ca1 (R); Height 5 ft. 6 in. (167.64 cm) (R); Pain 9/10; 20:00 BP 148 / 80; Pulse 68; Resp 18; Pulse Ox 96% on R/A; wh 21:30 BP 143 / 90; Pulse 67; Resp 18; Pulse Ox 97% on R/A; wh 23:00 BP 140 / 99; Pulse 72; Resp 18; Pulse Ox 98% on R/A; wh 17:51 Body Mass Index 27.44 (77.11 kg, 167.64 cm) ca1 ED Course: 17:07 Patient arrived in ED. rg4 17:53 Triage completed. ca1 17:54 Arm band placed on right wrist. ca1 19:15 Marino Kelly PA is PHCP. cp 19:15 Marino Haley MD is Attending Physician. cp 19:24 Norah Bautista RN is Primary Nurse. wh 19:45 Patient has correct armband on for positive identification. Bed in low position. Call light in reach. Side rails up X 1. nuclear monitoring technician on. Pulse ox on. NIBP on. 20:19 XRAY Chest (1 view) In Process Unspecified. EDMS 20:30 No provider procedures requiring assistance completed. Inserted saline lock: 20 gauge wh in right antecubital area, using aseptic technique. Blood collected. BY Roxanna MONTANEZ. 22:24 CT Chest For PE Angio In Process Unspecified. EDMS 23:03 Torito Guerra MD is Referral Physician. cp 23:27 IV discontinued, intact, bleeding controlled, No redness/swelling at site. Administered Medications: 20:35 Drug: morphine 2 mg Route: IVP; Site: right antecubital; 21:30 Drug: morphine 2 mg {Note: RASS 0.} Route: IVP; Site: right antecubital; 23:28 Follow up: Response: No adverse reaction; Pain is decreased; RASS: Alert and Calm (0) 22:50 Drug: morphine 2 mg {Note: RASS 0.} Route: IVP; Site: right antecubital; 23:28 Follow up: Response: No adverse reaction; Pain is decreased; RASS: Alert and Calm (0) 22:52 Drug: Ketorolac 15 mg Route: IVP; Site: right antecubital; 23:28 Follow up: Response: No adverse reaction 23:28 Follow up: Response: No adverse reaction; Pain is decreased Outcome: 23:04 Discharge ordered by . cp 23:27 Discharged to home ambulatory. 23:27 Condition: stable 23:27 Discharge instructions given to patient, Instructed on discharge instructions, follow up and referral plans. no drinking with medication, no driving heavy equipment, medication usage, POC Demonstrated understanding of instructions, follow-up care, medications, POC Prescriptions given X 2. 23:30 Patient left the ED. Signatures: Dispatcher [employer] EDMS Marino Kelly PA PA cp Garcia, Rubi rg4 Norah Bautista RN RN Millie Mckeon RN RN ca1 Corrections: (The following items were deleted from the chart) 23:26 19:30 Pain: Complains of pain in back Pain currently is 9 out of 10 on a pain scale. [facility]
--- NOTE | 2021-01-03 23:05 | EDPHYS ---
Physician Documentation [facility] Name: Megha Yang Age: 51 yrs Sex: Female : 1970 Arrival Date: 01/03/2021 Time: 17:07 Bed 20 Private MD: ED Physician Marino Haley HPI: 01/03 19:55 This 51 yrs old Female presents to ER via Ambulatory with complaints of Back cp Pain, Breathing Difficulty. 19:55 The patient presents with pain that is acute, with no known mechanism of injury. The cp symptoms are located in the right subscapular area. Onset: The symptoms/episode began/occurred 1 week(s) ago. The pain radiates to the right side lower chest below right breast. Associated signs and symptoms: Pertinent positives: chest pain, non-productive cough, shortness of breath, Pertinent negatives: abdominal pain, fever, rash. 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 - Social history:: Smoking status: Patient reports the use of cigarette tobacco products, smokes one-half pack cigarettes per day. ROS: 20:00 Back: Positive for pain at rest, pain with movement, of the right subscapular area. cp 20:00 Eyes: Negative for injury, pain, redness, and discharge. cp 20:00 Constitutional: Negative for body aches, chills, fever, poor PO intake. 20:00 Cardiovascular: Positive for chest pain, of the right lower chest below right breast, Negative for edema, palpitations. 20:00 Respiratory: Positive for cough, with no reported sputum, shortness of breath, Negative for wheezing. 20:00 Abdomen/GI: Negative for abdominal pain, nausea, vomiting, and diarrhea. cp 20:00 Skin: Negative for cellulitis, rash. 20:00 Neuro: Negative for altered mental status, headache, weakness. 20:00 All other systems are negative. Exam: 20:07 Constitutional: The patient appears in no acute distress, alert, awake, cp non-diaphoretic, non-toxic, well developed, well nourished, uncomfortable. 20:07 Head/Face: Normocephalic, atraumatic. cp 20:07 Eyes: Periorbital structures: appear normal, Conjunctiva: normal, no exudate, no injection, Sclera: no appreciated abnormality, Lids and lashes: appear normal, bilaterally. 20:07 ENT: External ear(s): are unremarkable, Nose: is normal, Mouth: Lips: moist, Oral mucosa: moist, Posterior pharynx: Airway: no evidence of obstruction, patent. 20:07 Neck: C-spine: vertebral tenderness, is not appreciated, crepitus, is not appreciated, ROM/movement: is normal, is supple, without pain, no range of motions limitations. 20:07 Chest/axilla: Inspection: normal, Palpation: crepitus, is not appreciated, tenderness, that is moderate, of the right lower lateral chest wall and right mid back and below right breast. 20:07 Cardiovascular: Rate: normal, Rhythm: regular, Edema: is not appreciated, JVD: is not appreciated. 20:07 Respiratory: the patient does not display signs of respiratory distress, Respirations: normal, no use of accessory muscles, no retractions, labored breathing, is not present, intercostal retractions, are absent, shallow respirations, that is mild, Breath sounds: are clear throughout, no decreased breath sounds, no stridor, no wheezing. 20:07 Abdomen/GI: Inspection: abdomen appears normal, Palpation: abdomen is soft and non-tender, in all quadrants. 20:07 Back: pain, that is moderate, of the mid thoracic area, ROM is painful, with all movement. 20:07 Skin: no rash present. 20:07 Neuro: Orientation: to person, place \T\ time. Mentation: is normal, Cerebellar function: is grossly normal, Motor: moves all fours, strength is normal, Sensation: is normal. 21:09 ECG was reviewed by the Attending Physician. cp Vital Signs: 17:51 BP 137 / 95; Pulse 82; Resp 16 S; Temp 97.6(TE); Pulse Ox 100% on R/A; Weight 77.11 kg ca1 (R); Height 5 ft. 6 in. (167.64 cm) (R); Pain 9/10; 20:00 BP 148 / 80; Pulse 68; Resp 18; Pulse Ox 96% on R/A; wh 21:30 BP 143 / 90; Pulse 67; Resp 18; Pulse Ox 97% on R/A; wh 23:00 BP 140 / 99; Pulse 72; Resp 18; Pulse Ox 98% on R/A; wh 17:51 Body Mass Index 27.44 (77.11 kg, 167.64 cm) ca1 MDM: 19:16 Patient medically screened. yunior 20:00 Differential diagnosis: Ureterolithiasis vertebral fracture, pulmonary embolism, cp pneumonia, rib fracture. 23:00 Data reviewed: vital signs, nurses notes, lab test result(s), EKG, radiologic studies, cp CT scan, plain films. 23:00 Counseling: I had a detailed discussion with the patient and/or guardian regarding: the cp historical points, exam findings, and any diagnostic results supporting the discharge/admit diagnosis, lab results, radiology results, to return to the emergency department if symptoms worsen or persist or if there are any questions or concerns that arise at home. Response to treatment: the patient's symptoms have markedly improved after treatment. 01/03 19:47 Order name: Basic Metabolic Panel; Complete Time: 21:34 cp 01/03 21:34 Interpretation: Normal except: GFR 74. cp 01/03 19:47 Order name: CBC with Diff; Complete Time: 21:01 cp 01/03 19:47 Order name: LFT's; Complete Time: 21:34 cp 01/03 21:34 Interpretation: Normal except: AST 154; ALT 91; ALK 164; GLOB 3.9. cp 01/03 19:47 Order name: Magnesium; Complete Time: 21:34 cp 01/03 19:47 Order name: NT PRO-BNP; Complete Time: 21:34 cp 01/03 19:47 Order name: PT-INR; Complete Time: 21:34 cp 01/03 19:47 Order name: Troponin (emerg Dept Use Only); Complete Time: 21:34 cp 01/03 19:47 Order name: XRAY Chest (1 view); Complete Time: 20:32 cp 01/03 20:32 Interpretation: Report reviewed. cp 01/03 19:47 Order name: D-Dimer; Complete Time: 21:34 cp 01/03 21:01 Order name: CT Chest For PE Angio cp 01/03 23:14 Order name: Urine Dipstick-Ancillary EDMS 01/03 23:19 Order name: Urine --Ancillary (enter results) mw2 01/03 19:47 Order name: EKG; Complete Time: 19:48 cp 01/03 19:47 Order name: Cardiac monitoring; Complete Time: 21:09 cp 01/03 19:47 Order name: EKG - Nurse/Tech; Complete Time: 21:09 cp 01/03 19:47 Order name: IV Saline Lock; Complete Time: 21:09 cp 01/03 19:47 Order name: Labs collected and sent; Complete Time: 21:09 cp 01/03 19:47 Order name: O2 Per Protocol; Complete Time: 21:09 cp 01/03 19:47 Order name: O2 Sat Monitoring; Complete Time: 21:09 cp 01/03 19:47 Order name: Urine Dipstick-Ancillary (obtain specimen); Complete Time: 23:15 cp 01/03 19:47 Order name: Urine Test (obtain specimen); Complete Time: 23:15 cp EC:09 Rate is 70 beats/min. Rhythm is regular. MN interval is normal. QRS interval is normal. cp QT interval is normal. Interpreted by me. Reviewed by me. Administered Medications: 20:35 Drug: morphine 2 mg Route: IVP; Site: right antecubital; 21:30 Drug: morphine 2 mg {Note: RASS 0.} Route: IVP; Site: right antecubital; 23:28 Follow up: Response: No adverse reaction; Pain is decreased; RASS: Alert and Calm (0) 22:50 Drug: morphine 2 mg {Note: RASS 0.} Route: IVP; Site: right antecubital; 23:28 Follow up: Response: No adverse reaction; Pain is decreased; RASS: Alert and Calm (0) 22:52 Drug: Ketorolac 15 mg Route: IVP; Site: right antecubital; 23:28 Follow up: Response: No adverse reaction 23:28 Follow up: Response: No adverse reaction; Pain is decreased Disposition: 01/04 08:12 Co-signature as Attending Physician, Marino Haley MD I agree with the assessment and yunior plan of care. Disposition: 01/03/21 23:04 Discharged to Home. Impression: Compression Fracture of T7. - Condition is Stable. - Discharge Instructions: Spinal Compression Fracture. - Prescriptions for Tylenol- Codeine #3 300-30 mg Oral Tablet - take 2 tablets by ORAL route every 8-12 hours As needed; 20 tablet. Cyclobenzaprine 10 mg Oral Tablet - take 1 tablet by ORAL route every 8 hours As needed; 20 tablet. - Medication Reconciliation Form, Thank You Letter, Antibiotic Education, Prescription Opioid Use form. - Follow up: Torito Guerra MD; When: 2 - 3 days; Reason: Recheck today's complaints. - Problem is new. - Symptoms have improved. Signatures: Dispatcher [employer] EDKS Marino Haley MD MD cha Page, Corey, PA PA cp Norah Bautista, RN RN Millie Mckeon RN RN [facility] Corrections: (The following items were deleted from the chart) 01/03 21:58 21:36 Abdomen Limited+US.RAD.BRZ ordered. [facility] EDKS 23:30 23:04 01/03/2021 23:04 Discharged to Home. Impression: Compression Fracture of T7. Condition is Stable. Forms are Medication Reconciliation Form, Thank You Letter, Antibiotic Education, Prescription Opioid Use. Follow up: Torito Guerra; When: 2 - 3 days; Reason: Recheck today's complaints. Problem is new. Symptoms have improved. cp
[2021-01-03 23:14] LABS: Urine Blood Negative (Negative); Urine Glucose Negative (Negative); Urine Protein Negative (Negative); Urine Specific Gravity >=1.030 (1.005-1.030)
[2021-01-04 00:10] LABS: Urine Specific Gravity/Preg >1.030 (1.005-1.030)
--- NOTE | 2021-01-04 10:22 | RAD REPORT ---
EXAM DESCRIPTION: CT - Chest For Pe Angio - 01/04/2021 6:17 am CLINICAL HISTORY: 51 years Female CHEST PAIN TECHNIQUE: Contiguous axial images obtained through the chest were obtained from the thoracic inlet to the level of the upper abdomen during the pulmonary arterial phase of intravenous contrast adminis tration. Coronal and sagittal reformatted and MIP images provided. This CT exam was performed according to our departmental dose-optimization program, which includes on e or more of the following dose reduction techniques: automated exposure control, adjustment of the m A and/or kV according to patient size, and/or use of iterative reconstruction technique. COMPARISON: 06/07/2014 FINDINGS: There is no pulmonary embolus. The thoracic aorta is normal without aneurysm or dissection. The heart is normal in size without radha cardial effusion. Aside from mild dependent atelectasis bilaterally, the lungs are clear without consolidation, effus ion, or pneumothorax. No lymphadenopathy in the chest. There is a T7 compression fracture which is new since the prior exam which appears acute to subacute. There is 50% loss of height centrally without retropulsion or visualized epidural hemorrhage. IMPRESSION: T7 compression fracture appears acute to subacute, correlate clinically. No retropulsion or visualized epidural hemorrhage. No other acute findings in the chest. No pulmonary embolus. Electronically signed by: Cary Stokes MD 01/03/2021 10:40 PM CDT Due to temporary technical issues with the PACS/Fluency reporting system, reports are being signed by the in house radiologist without review as a courtesy to ensure prompt reporting. The interpreting r adiologist is fully responsible for the content of the report.
[2021-01-04 18:50] VITALS: TEMP 97.6
[2021-01-04 18:53] VITALS: BP 140/99; O2SAT 98
== END 2021-01-03 23:30 | disposition home or self-care (01) ==
LOC: ER 17:03
DX: M48.54XA Collapsed vertebra, not elsewhere classified, thoracic region, initial encounter for fracture (principal); F32.9 Major depressive disorder, single episode, unspecified; F17.210 Nicotine dependence, cigarettes, uncomplicated
CPT/HCPCS: 93005; 85025; 80048; 36415; 83735; 81025; 85610; 85379; 80076; 81003; 84484; 83880; 71275; 71045; 96375; 96374; 99284; Q9967; J2270 ×3